=== PATIENT | male | born 1980 | race Caucasian/White ===

== ENCOUNTER 2017-01-30 10:26 | Emergency (ER) | payer MEDICAID ==
[~2017-01-30] VITALS: Ht 167.6 cm; Wt 84.5 kg
[2017-01-30 10:30] VITALS: Ht 167.6 cm; Wt 84.5 kg
--- NOTE | 2017-01-30 11:16 | ERD ---
ER Documentation Chief Complaint Chief Complaint sudden on set nose bleed today HPI 36-year-old male, with end stage renal disease on hemodialysis presents to the emergency department c/o bilateral nasal bleeding for the last 30 minutes. The patient reports a history of upper respiratory infection last week. Denies history of trauma. The patient takes Coumadin but is not compliant with medication. ROS SYSTEMIC symptoms: no fever, chills, no night sweats, no weight loss EYE symptoms: No blurred vision, no eye discharge OTOLARYNGEAL symptoms: No hearing loss. No ear pain, no sore throat CARDIOVASCULAR symptoms: No chest pain or discomfort, no palpitations. PULMONARY symptoms: No dyspnea, no cough, no wheezing. GASTROINTESTINAL symptoms: No abdominal pain, no nausea, no vomiting, no diarrhea MUSCULOSKELETAL symptoms: No arthralgias, no muscle aches. NEUROLOGY symptoms: No confusion, no syncope, no numbness or tingling. SKIN no rashes All systems reviewed and are negative except as per history of present illness. PMhx/Soc ESRD on HD Physical Exam Vitals Vital Signs Date Time Temp Pulse Resp B/P Pulse Ox O2 Delivery O2 Flow Rate FiO2 01/30/17 10:30 98.0 99 18 173/95 97 Physical Exam Const: Alert, oriented, in mild distress due to bleeding Head: Atraumatic Eyes: Normal Conjunctiva ENT: Bilateral anterior epistaxis Neck: Full range of motion..~ No meningismus. Resp: Clear to auscultation bilaterally Cardio: Regular rate and rhythm, no murmurs Results 24 hrs Current Medications Medications (Trade) Dose Ordered Sig/Donna Route PRN Reason Start Time Stop Time Status Last Admin Dose Admin Oxymetazoline HCl (Afrin C[place]et) 2 spray ONCE ONCE NASAL 01/30/17 11:30 01/30/17 11:31 DC Procedures/MDM 36 y/o male presents to the ED with moderate bilateral epistaxis without previous trauma but with a recent URI. Procedure: Patient placed in sniffing position, the patient was asked to blow his nose removing blood clots. I was unable to visualize exact site of anterior bleeding , Rhino rocket was attempted twice unsuccessfully. Manual packing was done with gauze impregnated with saline, Afrin and bacitracin with direct pressure for 20 minutes achiving control. The patient was placed in observation for 30 minutes without evidence of rebleeding. The patient was instructed to f/u with his doctor in 2 days for packing removal Departure Diagnosis: Primary Impression: Epistaxis not due to trauma Condition: Stable Additional Instructions: Muchas lance por [facility] para pimentel servicio. Esperamos que en pimentel visita a la minna de emergencia pimentel problema medico haya sido solucionado y que se sienta mucho mejor. Para estar seguros que pimentel mejoria sigue en proceso, le pedimos el favor de hacer bonny geoffrey de seguimiento medico con pimentel doctor primario en los proximos 2-4 nielsen. Lleve con usted estos documentos y las medicinas recetadas. Si pascale sintomas empeoran y no puede jennifer a pimentel doctor, por favor regrese a minna de emergencia. MITLU HDZ MD Jan 30, 2017 11:16 MITUL HDZ MD Jan 30, 2017 11:16
[2017-01-30] MEDS ORDERED: OXYMETAZOLINE 0.05% 15 ML NAS SPRAY NASAL ONE (11:30)
== END 2017-01-30 15:25 | disposition home or self-care (01) ==
LOC: FTE 10:26
DX: R04.0 Epistaxis (principal); N18.6 End stage renal disease; Z99.2 Dependence on renal dialysis
CPT/HCPCS: 30903; Z7502; Z7610

== ENCOUNTER 2017-04-09 09:16 | Emergency (ER) | END 2017-04-09 13:24 | disposition home or self-care (01) ==

== ENCOUNTER 2017-05-30 04:00 | Emergency (ER) | END 2017-05-30 08:40 | disposition home or self-care (01) ==

== ENCOUNTER 2018-03-11 10:46 | Emergency (ER) | END 2018-03-11 12:21 | disposition home or self-care (01) ==